=== PATIENT | female | born 1980 | race Caucasian/White ===

== ENCOUNTER 2018-06-15 17:11 | Inpatient (IN) | payer OTHER ==
[2018-06-15] MEDS ORDERED: METHYLERGONOVINE 0.2 MG INJ IM (18:00)
[2018-06-15] MEDS ORDERED: CEFAZOLIN 2 GM/50 ML (PMX) 50 ML IVPB (18:00)
[2018-06-15] MEDS ORDERED: OXYTOCIN 30 UNITS/LR 500 ML IV (18:00)
[2018-06-15] MEDS ORDERED: MISOPROSTOL 200 MCG TAB PR ×2 (18:00→18:30)
[2018-06-15] MEDS ORDERED: CARBOPROST 250 MCG INJ IM (18:00)
[2018-06-15 18:09] LABS: ADD MAN DIFF? NO
[2018-06-15 18:11] LABS: BASOPHILS % 0.3 % (0.0-2.0); EOSINOPHILS % 0.3 % (0.0-7.0); HEMATOCRIT 37.9 % (37.0-47.0); HEMOGLOBIN 11.9 g/dl (12.0-16.0); LYMPHOCYTES # 2.2 10^3/ul (0.8-2.9); LYMPHOCYTES % 19.7 % (15.0-51.0); MEAN CORPUSCULAR HEMOGLOBIN 24.7 pg (29.0-33.0); MEAN CORPUSCULAR HGB CONC 31.4 g/dl (32.0-37.0); MEAN CORPUSCULAR VOLUME 78.8 fl (82.0-101.0); MEAN PLATELET VOLUME 11.3 fl (7.4-10.4); MONOCYTE # 0.7 10^3/ul (0.3-0.9); MONOCYTES % 5.8 % (0.0-11.0); NEUTROPHIL # 8.2 10^3/ul (1.6-7.5); NEUTROPHILS % 73.2 % (39.0-77.0); PLATELET COUNT 356 10^3/UL (140-415); RED BLOOD COUNT 4.81 10^6/ul (4.20-5.40); RED CELL DISTRIBUTION WIDTH 16.5 % (11.5-14.5)
[2018-06-15 18:11] LABS: WHITE BLOOD COUNT 11.2 10^3/ul (4.8-10.8)
[2018-06-15] MEDS: LACTATED RINGER'S 1,000 ML IV ×2 (18:11→18:44)
[2018-06-15] MEDS ORDERED: NA PHOSPHATE/BIPHOS 133 ML ENEMA PR (18:30)
[2018-06-15] MEDS ORDERED: LANOLIN HPA 1 PKT TOP (18:30)
[2018-06-15] MEDS ORDERED: OXYCODONE/ACETAMINOPHEN (5/325) TAB PO (18:30)
[2018-06-15 18:31] LABS: INR 0.87; PROTIME 11.9 Sec (11.9-14.9); PT RATIO 0.9
[2018-06-15 19:01] LABS: HEPATITIS B SURFACE ANTIGEN NEGATIVE (NEGATIVE)
[2018-06-15] MEDS ORDERED: DIPHENHYDRAMINE 50 MG INJ IV (20:30)
[2018-06-15] MEDS ORDERED: NALOXONE (0.4 MG/ML) INJ IV (20:30)
[2018-06-15] MEDS ORDERED: ONDANSETRON 4 MG INJ IV (20:30)
[2018-06-15] MEDS ORDERED: ZOLPIDEM 5 MG TAB PO (20:30)
[2018-06-15] MEDS ORDERED: HYDROmorphONE 0.5 MG/0.5 ML SYG IV ×2 (20:30)
[2018-06-15] MEDS: KETOROLAC 30 MG INJ IV (22:25)
[2018-06-15] MEDS: OXYTOCIN 30 UNITS/LR 500 ML IV (22:35)
[2018-06-16] MEDS: SENNA/DOCUSATE NA (8.6MG/50MG) TAB PO ×3 (02:29→20:42)
[2018-06-16] MEDS: LACTATED RINGER'S 1,000 ML IV ×3 (02:34→17:45)
[2018-06-16 06:13] LABS: ADD MAN DIFF? NO
[2018-06-16 06:29] LABS: BASOPHILS % 0.3 % (0.0-2.0); EOSINOPHILS % 0.1 % (0.0-7.0); HEMOGLOBIN 7.7 g/dl (12.0-16.0); LYMPHOCYTES # 1.6 10^3/ul (0.8-2.9); LYMPHOCYTES % 10.2 % (15.0-51.0); MEAN CORPUSCULAR HEMOGLOBIN 25.8 pg (29.0-33.0); MEAN CORPUSCULAR HGB CONC 32.1 g/dl (32.0-37.0); MEAN CORPUSCULAR VOLUME 80.5 fl (82.0-101.0); MONOCYTE # 0.9 10^3/ul (0.3-0.9); MONOCYTES % 5.9 % (0.0-11.0); NEUTROPHIL # 13.1 10^3/ul (1.6-7.5); NEUTROPHILS % 82.7 % (39.0-77.0); PLATELET COUNT 264 10^3/UL (140-415); RED BLOOD COUNT 2.98 10^6/ul (4.20-5.40); RED CELL DISTRIBUTION WIDTH 16.5 % (11.5-14.5)
[2018-06-16 06:29] LABS: WHITE BLOOD COUNT 15.8 10^3/ul (4.8-10.8)
[2018-06-16] MEDS: KETOROLAC 30 MG INJ IV (15:49)
[2018-06-16] MEDS: IBUPROFEN 600 MG TAB PO (17:56)
[2018-06-16] MEDS: FERROUS SULFATE (EC) 325 MG TAB PO (20:43)
[2018-06-16 21:21] LABS: RAPID PLASMA REAGIN NONREACTIVE (NR)
[2018-06-16] MEDS: OXYCODONE/ACETAMINOPHEN (5/325) TAB PO (23:01)
[2018-06-17] MEDS: OXYCODONE/ACETAMINOPHEN (5/325) TAB PO
[2018-06-17] MEDS: IBUPROFEN 600 MG TAB PO ×5 (00:15→23:39)
[2018-06-17 08:40] LABS: HEMATOCRIT 21.2 % (37.0-47.0)
[2018-06-17 08:52] LABS: HEMOGLOBIN 6.6 g/dl (12.0-16.0)
[2018-06-17] MEDS: SENNA/DOCUSATE NA (8.6MG/50MG) TAB PO ×2 (09:20→21:25)
[2018-06-17] MEDS: FERROUS SULFATE (EC) 325 MG TAB PO ×2 (12:17→21:24)
[2018-06-18] MEDS: IBUPROFEN 600 MG TAB PO (05:30)
[2018-06-18] MEDS: MEASLES,MUMPS,RUBELLA VACCINE INJ SC* (09:00)
[2018-06-18] MEDS: DIPHTH/TET/ACEL PERTUSS (ADULT) 0.5 ML VIAL IM* (09:00)
[2018-06-18] MEDS: OXYCODONE/ACETAMINOPHEN (5/325) TAB PO (09:04)
[2018-06-18] MEDS: FERROUS SULFATE (EC) 325 MG TAB PO (09:04)
[2018-06-18] MEDS: SENNA/DOCUSATE NA (8.6MG/50MG) TAB PO (09:04)
== END 2018-06-18 11:45 | disposition home or self-care (01) | DRG 785 ==
LOC: L-D 17:11 → PP1 06-16 14:04 → L-D 18:53
PROVIDERS: Specialist
PROC: 10D00Z1 Extraction of Products of Conception, Low, Open Approach (ICD-10-PCS; principal; 2018-06-15 18:00)
PROC: 0UB70ZZ Excision of Bilateral Fallopian Tubes, Open Approach (ICD-10-PCS; 2018-06-15 18:00)
DX: O34.211 Maternal care for low transverse scar from previous cesarean delivery (principal); O90.81 Anemia of the puerperium; D64.9 Anemia, unspecified; Z3A.39 39 weeks gestation of pregnancy; Z37.0 Single live birth; Z30.2 Encounter for sterilization
CPT/HCPCS: 85014; 85018; 85025; 85610; 85730; 86592; 86850; 86900; 86901; 87340; 88302; 99464